=== PATIENT | female | born 1965 | race Caucasian/White ===

== ENCOUNTER 2019-03-06 18:51 | Emergency (ER) | payer OTHER ==
[~2019-03-06] VITALS: Ht 170.1 cm; Wt 76.2 kg
[~2019-03-06 18:51] MED LIST: ONDANSETRON H2 MG/ML PO; ZOLOFT25 MG PO
[2019-03-06] MEDS ORDERED: FENOFIBRATE48 M1 PO (18:54)
[2019-03-06] MEDS ORDERED: CEFADROXIL500 M1 PO (19:40)
== END 2019-03-06 19:58 | disposition home or self-care (01) ==
LOC: ED 18:51
DX: S51.011A Laceration without foreign body of right elbow, initial encounter (principal); S91.115A Laceration without foreign body of left lesser toe(s) without damage to nail, initial encounter; S51.811A Laceration without foreign body of right forearm, initial encounter; Z88.6 Allergy status to analgesic agent; Z79.899 Other long term (current) drug therapy; Z87.891 Personal history of nicotine dependence; W18.39XA Other fall on same level, initial encounter; Y93.89 Activity, other specified; Y92.89 Other specified places as the place of occurrence of the external cause; Y99.8 Other external cause status